=== PATIENT | male | born 1985 | race Caucasian/White ===

== ENCOUNTER 2019-05-17 13:47 | Inpatient (IN) ==
[2019-05-17 14:22] LABS: Basophils % 0.4 %; Eosinophils % 0.9 %; Hematocrit 44.1 % (37.5-50.1); Hemoglobin 15.4 g/dL (12.9-16.9); Immature Granulocytes % 0.2 % (0-4); Lymphocytes # 1.6 K/mcL (0.6-4.6); Lymphocytes % 35.3 %; Mean Corpuscular HGB Conc 34.9 g/dL (31.6-35.5); Mean Corpuscular Hemoglobin 30.4 pg (28.0-33.3); Mean Corpuscular Volume 87.2 fL (83.0-100.0); Mean Platelet Volume 8.8 fL (9.4-12.4); Monocytes # 0.7 K/mcL (0.0-1.3); Monocytes % 15.3 %; Neutrophils # 2.2 K/mcL (1.6-8.9); Platelet Count 258 K/mcL (140-400); Red Blood Count 5.06 M/mcL (4.19-5.50); Red Cell Distribution Width 12.5 % (11.5-14.5); Segmented Neutrophils % 47.9 %; White Blood Count 4.5 K/mcL (4.3-11.1)
[2019-05-17 14:47] LABS: Acetaminophen < 10 mcg/mL (10-20); Alanine Aminotransferase 22 Units/L (7-52); Albumin 4.3 g/dL (3.5-5.7); Albumin/Globulin Ratio 1.8 (1.1-2.2); Alkaline Phosphatase 76 Units/L (34-104); Aspartate Amino Transferase 20 Units/L (13-39); BUN/Creatinine Ratio 13 (6-26); Bilirubin,Indirect 0.3 mg/dL (0.0-1.0); Bilirubin,Total 0.3 mg/dL (0.3-1.0); Blood Urea Nitrogen 11 mg/dL (6-20); Calcium 9.4 mg/dL (8.6-10.3); Carbon Dioxide 26 mEq/L (23-29); Chloride 101 mEq/L (98-107); Chol/HDL Ratio 2.8 (0-4.9); Cholesterol 122 mg/dL (< 200); Ethanol < 10 mg/dL (Less than 10); Globulin 2.4 g/dL (2.4-3.5); Glucose 121 mg/dL (70-105); HDL Cholesterol 43 mg/dL (40-59); LDL Cholesterol,Calculated 59 mg/dL (0-99); Osmolality,Calculated 283 (280-300); Potassium 3.9 mEq/L (3.5-5.1); Salicylate < 2.5 mg/dL (15.0-30.0); Sodium 136 mEq/L (136-145); Total Protein 6.7 g/dL (6.4-8.9); Triglycerides 101 mg/dL (< 150); eGFR For African Americans > 60 (> 60); eGFR For Non-African Americans > 60 (> 60)
[2019-05-17 14:58] LABS: Thyroid Stimulating Hormone 0.846 mcIU/mL (0.340-5.600)
[2019-05-17 16:03] LABS: Estimated Average Glucose 123 mg/dl
[2019-05-17 16:04] LABS: Amphetamine Screen,Urine Negative ng/mL (Cutoff=1000); Barbiturate Screen,Urine Negative ng/mL (Cutoff=200); Benzodiazepines Screen,Urine Negative ng/mL (Cutoff=200); Cannabinoid Screen,Urine Negative ng/mL (Cutoff = 50); Cocaine Screen,Urine Negative ng/mL (Cutoff= 300); Opiate Screen,Urine Negative ng/mL (Cutoff=300); Phencyclidine Screen,Urine Negative ng/mL (Cutoff=25)
[2019-05-17 16:11] LABS: Bilirubin,Urine Negative (Negative); Blood,Urine Negative (Negative); Clarity,Urine Clear (Clear); Color,Urine Yellow (Yellow); Glucose,Urine (UA) Normal (Normal); Ketones,Urine Negative (Negative); Leukocyte Esterase,Urine Negative (Negative); Nitrite,Urine Negative (Negative); PH,Urine 6.5 pH Units (5.0-8.0); Protein,Urine Negative (Neg-Trace); Specific Gravity,Urine 1.008 (1.010-1.025); Urobilinogen,Urine Normal (Normal)
[2019-05-17] MEDS ORDERED: *HR* LORazepam 2 MG/ML VIAL IM ONE (18:47)
[2019-05-17] MEDS ORDERED: Haloperidol Lactate 5 MG/ML VIAL IM ONE (18:47)
[2019-05-17] MEDS ORDERED: Acetaminophen 325 MG TABLET PO PRN (20:18)
[2019-05-17] MEDS ORDERED: hydrOXYzine pamoate 25 MG CAPSULE PO PRN (20:18)
[2019-05-17] MEDS ORDERED: Mag Hydrox/Al Hydrox/Simeth 30 ML UDC PO PRN (20:18)
[2019-05-17] MEDS ORDERED: *HR* LORazepam 2 MG/ML VIAL IM PRN (20:18)
[2019-05-17] MEDS: OLANZapine 10 MG TAB.RAPDIS PO SCH ×2 (21:13→21:19)
[2019-05-17] MEDS: Nicotine 21 MG PATCH.TD24 TD SCH (21:22)
[2019-05-18] MEDS: Nicotine 21 MG PATCH.TD24 TD SCH (08:43)
[2019-05-18] MEDS: Fluticasone Propionate Nasal 50 MCG/SPRAY BOTTLE NS SCH (13:40)
[2019-05-18] MEDS: *HR* LORazepam 1 MG TABLET PO PRN (21:03)
[2019-05-18] MEDS: OLANZapine 10 MG TAB.RAPDIS PO SCH (21:04)
[2019-05-19] MEDS: Nicotine 21 MG PATCH.TD24 TD SCH (08:39)
[2019-05-19] MEDS: Fluticasone Propionate Nasal 50 MCG/SPRAY BOTTLE NS SCH (08:40)
[2019-05-19] MEDS: *HR* LORazepam 1 MG TABLET PO PRN ×2 (14:37→20:25)
[2019-05-19] MEDS: OLANZapine 10 MG TAB.RAPDIS PO SCH (20:28)
[2019-05-20] MEDS: Nicotine 21 MG PATCH.TD24 TD SCH (11:12)
[2019-05-20] MEDS: Fluticasone Propionate Nasal 50 MCG/SPRAY BOTTLE NS SCH (11:12)
[2019-05-20] MEDS: *HR* LORazepam 1 MG TABLET PO PRN (14:06)
[2019-05-20] MEDS: OLANZapine 10 MG TAB.RAPDIS PO SCH (21:47)
[2019-05-21] MEDS: Nicotine 21 MG PATCH.TD24 TD SCH ×2 (10:10→12:56)
[2019-05-21] MEDS: Fluticasone Propionate Nasal 50 MCG/SPRAY BOTTLE NS SCH ×2 (10:10→12:56)
[2019-05-21] MEDS: OLANZapine 10 MG TAB.RAPDIS PO SCH (21:41)
[2019-05-22] MEDS: Nicotine 21 MG PATCH.TD24 TD SCH (10:23)
[2019-05-22] MEDS: Fluticasone Propionate Nasal 50 MCG/SPRAY BOTTLE NS SCH ×2 (10:27→13:24)
[2019-05-22] MEDS: MOM Conc 10 ML UD.LIQ PO PRN (13:14)
[2019-05-22] MEDS: OLANZapine 10 MG TAB.RAPDIS PO SCH (22:02)
[2019-05-23] MEDS: Nicotine 2 MG GUM BC PRN ×4 (07:29→17:14)
[2019-05-23] MEDS: Fluticasone Propionate Nasal 50 MCG/SPRAY BOTTLE NS SCH ×2 (09:18→15:06)
[2019-05-24] MEDS: OLANZapine 10 MG TAB.RAPDIS PO SCH ×2 (02:28→23:20)
[2019-05-24] MEDS: Nicotine 2 MG GUM BC PRN ×3 (07:19→18:02)
[2019-05-24] MEDS: Fluticasone Propionate Nasal 50 MCG/SPRAY BOTTLE NS SCH ×2 (08:38→13:54)
[2019-05-25] MEDS: Nicotine 2 MG GUM BC PRN ×4 (07:46→17:22)
[2019-05-25] MEDS: Fluticasone Propionate Nasal 50 MCG/SPRAY BOTTLE NS SCH ×2 (09:01→17:22)
[2019-05-26] MEDS: Nicotine 2 MG GUM BC PRN ×5 (09:37→23:28)
[2019-05-26] MEDS: Fluticasone Propionate Nasal 50 MCG/SPRAY BOTTLE NS SCH ×2 (09:38→23:41)
[2019-05-27] MEDS: Nicotine 2 MG GUM BC PRN ×6 (07:34→23:30)
[2019-05-27] MEDS: Fluticasone Propionate Nasal 50 MCG/SPRAY BOTTLE NS SCH ×2 (09:39→18:52)
[2019-05-28] MEDS: Nicotine 2 MG GUM BC PRN ×5 (06:35→22:34)
[2019-05-28] MEDS: Fluticasone Propionate Nasal 50 MCG/SPRAY BOTTLE NS SCH ×2 (09:38→21:56)
[2019-05-28] MEDS: traZODone 50 MG TABLET PO PRN (21:46)
[2019-05-29] MEDS: Nicotine 2 MG GUM BC PRN ×3 (06:56→15:22)
[2019-05-29] MEDS: Fluticasone Propionate Nasal 50 MCG/SPRAY BOTTLE NS SCH ×2 (10:11→15:22)
[2019-05-29] MEDS: *HR* LORazepam 1 MG TABLET PO SCH ×2 (13:31→23:20)
[2019-05-29] MEDS: *HR* LORazepam 1 MG TABLET PO PRN (18:32)
[2019-05-29] MEDS ORDERED: Haloperidol Lactate 5 MG/ML VIAL IM ONE (19:55)
[2019-05-29] MEDS ORDERED: *HR* LORazepam 2 MG/ML VIAL IM ONE (19:55)
[2019-05-30] MEDS: Nicotine 2 MG GUM BC PRN ×2 (07:29→10:00)
[2019-05-30] MEDS: *HR* LORazepam 1 MG TABLET PO SCH ×2 (10:01→21:19)
[2019-05-30] MEDS: Fluticasone Propionate Nasal 50 MCG/SPRAY BOTTLE NS SCH (10:02)
[2019-05-30] MEDS: Nicotine 21 MG PATCH.TD24 TD SCH (12:48)
[2019-05-30] MEDS: *HR* LORazepam 1 MG TABLET PO PRN (17:45)
[2019-05-30] MEDS: traZODone 50 MG TABLET PO PRN (21:20)
[2019-05-31] MEDS: Fluticasone Propionate Nasal 50 MCG/SPRAY BOTTLE NS SCH (07:54)
[2019-05-31] MEDS: Nicotine 21 MG PATCH.TD24 TD SCH (07:54)
[2019-05-31] MEDS: *HR* LORazepam 1 MG TABLET PO SCH ×2 (07:55→21:01)
[2019-05-31] MEDS: *HR* LORazepam 1 MG TABLET PO PRN ×2 (12:20→18:44)
[2019-05-31] MEDS: Haloperidol Lactate 5 MG/ML VIAL IM PRN ×2 (14:00→19:33)
[2019-05-31] MEDS: traZODone 50 MG TABLET PO PRN (21:00)
[2019-06-01] MEDS: Nicotine 21 MG PATCH.TD24 TD SCH (08:22)
[2019-06-01] MEDS: *HR* LORazepam 1 MG TABLET PO SCH ×2 (08:23→21:17)
[2019-06-01] MEDS: Fluticasone Propionate Nasal 50 MCG/SPRAY BOTTLE NS SCH ×2 (08:23→11:43)
[2019-06-01] MEDS: *HR* LORazepam 1 MG TABLET PO PRN ×2 (12:28→18:31)
[2019-06-01] MEDS: traZODone 50 MG TABLET PO PRN (21:18)
[2019-06-02] MEDS: *HR* LORazepam 1 MG TABLET PO PRN ×2 (06:36→16:59)
[2019-06-02] MEDS: Fluticasone Propionate Nasal 50 MCG/SPRAY BOTTLE NS SCH (06:37)
[2019-06-02] MEDS: Nicotine 21 MG PATCH.TD24 TD SCH (08:41)
[2019-06-02] MEDS: *HR* LORazepam 1 MG TABLET PO SCH ×3 (10:22→21:11)
[2019-06-02] MEDS: MOM Conc 10 ML UD.LIQ PO PRN (17:37)
[2019-06-02] MEDS: traZODone 50 MG TABLET PO PRN (21:11)
[2019-06-03] MEDS: Fluticasone Propionate Nasal 50 MCG/SPRAY BOTTLE NS SCH (08:14)
[2019-06-03] MEDS: *HR* LORazepam 1 MG TABLET PO SCH ×3 (08:14→20:51)
[2019-06-03] MEDS: Nicotine 21 MG PATCH.TD24 TD SCH (08:15)
[2019-06-03] MEDS: *HR* LORazepam 1 MG TABLET PO PRN (13:09)
[2019-06-03] MEDS: Saline Nasal Spray 44 ML BOTTLE NS PRN (15:22)
[2019-06-03] MEDS: traZODone 50 MG TABLET PO PRN (20:51)
[2019-06-04] MEDS: Nicotine 21 MG PATCH.TD24 TD SCH (08:30)
[2019-06-04] MEDS: Fluticasone Propionate Nasal 50 MCG/SPRAY BOTTLE NS SCH (08:33)
[2019-06-04] MEDS: *HR* LORazepam 1 MG TABLET PO SCH (10:35)
[2019-06-04] MEDS: Saline Nasal Spray 44 ML BOTTLE NS PRN (14:48)
[2019-06-04] MEDS: *HR* LORazepam 1 MG TABLET PO PRN ×2 (16:07→21:33)
[2019-06-04] MEDS: traZODone 50 MG TABLET PO PRN (21:33)
[2019-06-05] MEDS: Nicotine 21 MG PATCH.TD24 TD SCH (08:47)
[2019-06-05] MEDS: *HR* LORazepam 1 MG TABLET PO PRN ×3 (10:40→20:48)
[2019-06-05] MEDS: Fluticasone Propionate Nasal 50 MCG/SPRAY BOTTLE NS SCH (10:40)
[2019-06-05] MEDS: Saline Nasal Spray 44 ML BOTTLE NS PRN (12:18)
[2019-06-05] MEDS: traZODone 50 MG TABLET PO PRN (20:48)
[2019-06-06] MEDS: Nicotine 21 MG PATCH.TD24 TD SCH (09:07)
[2019-06-06] MEDS: Fluticasone Propionate Nasal 50 MCG/SPRAY BOTTLE NS SCH (09:08)
[2019-06-06] MEDS: *HR* LORazepam 1 MG TABLET PO PRN ×2 (11:43→16:07)
[2019-06-06] MEDS: MOM Conc 10 ML UD.LIQ PO PRN (11:44)
[2019-06-06] MEDS: Saline Nasal Spray 44 ML BOTTLE NS PRN (13:29)
[2019-06-07] MEDS: *HR* LORazepam 1 MG TABLET PO PRN ×4 (04:50→21:55)
[2019-06-07] MEDS: Nicotine 21 MG PATCH.TD24 TD SCH (11:24)
[2019-06-07] MEDS: Fluticasone Propionate Nasal 50 MCG/SPRAY BOTTLE NS SCH ×2 (12:45→13:57)
[2019-06-07] MEDS: MOM Conc 10 ML UD.LIQ PO PRN (13:15)
[2019-06-07] MEDS: Saline Nasal Spray 44 ML BOTTLE NS PRN (16:27)
[2019-06-07] MEDS: traZODone 50 MG TABLET PO PRN (21:55)
[2019-06-08] MEDS: Nicotine 21 MG PATCH.TD24 TD SCH (08:01)
[2019-06-08] MEDS: *HR* LORazepam 1 MG TABLET PO PRN ×3 (08:28→18:08)
[2019-06-08] MEDS: Fluticasone Propionate Nasal 50 MCG/SPRAY BOTTLE NS SCH (08:28)
[2019-06-08] MEDS: Saline Nasal Spray 44 ML BOTTLE NS PRN (13:02)
[2019-06-09] MEDS: Nicotine 21 MG PATCH.TD24 TD SCH (08:00)
[2019-06-09] MEDS: *HR* LORazepam 1 MG TABLET PO PRN ×3 (08:00→18:08)
[2019-06-09] MEDS: Fluticasone Propionate Nasal 50 MCG/SPRAY BOTTLE NS SCH (08:01)
[2019-06-09] MEDS: Saline Nasal Spray 44 ML BOTTLE NS PRN (18:09)
[2019-06-10] MEDS: Fluticasone Propionate Nasal 50 MCG/SPRAY BOTTLE NS SCH (08:33)
[2019-06-10] MEDS: Nicotine 21 MG PATCH.TD24 TD SCH (08:33)
[2019-06-10] MEDS: *HR* LORazepam 1 MG TABLET PO PRN ×2 (08:35→17:43)
[2019-06-10] MEDS: Saline Nasal Spray 44 ML BOTTLE NS PRN (12:48)
[2019-06-11] MEDS: Nicotine 21 MG PATCH.TD24 TD SCH (08:34)
[2019-06-11] MEDS: *HR* LORazepam 1 MG TABLET PO PRN ×2 (10:39→17:14)
[2019-06-11] MEDS: MOM Conc 10 ML UD.LIQ PO PRN (11:02)
[2019-06-11] MEDS: Saline Nasal Spray 44 ML BOTTLE NS PRN (11:04)
[2019-06-11] MEDS: Fluticasone Propionate Nasal 50 MCG/SPRAY BOTTLE NS SCH (14:27)
[2019-06-12] MEDS: Nicotine 21 MG PATCH.TD24 TD SCH (08:35)
[2019-06-12] MEDS: Fluticasone Propionate Nasal 50 MCG/SPRAY BOTTLE NS SCH ×2 (14:10→19:17)
[2019-06-12] MEDS: *HR* LORazepam 1 MG TABLET PO PRN (17:38)
[2019-06-12] MEDS: traZODone 50 MG TABLET PO PRN (20:33)
[2019-06-12] MEDS: Saline Nasal Spray 44 ML BOTTLE NS PRN (21:15)
[2019-06-12] MEDS: Ibuprofen 400 MG TABLET PO PRN (21:15)
[2019-06-13] MEDS: Nicotine 21 MG PATCH.TD24 TD SCH (08:28)
[2019-06-13] MEDS: Fluticasone Propionate Nasal 50 MCG/SPRAY BOTTLE NS SCH ×2 (08:29→12:15)
[2019-06-13] MEDS: *HR* LORazepam 1 MG TABLET PO PRN ×2 (11:26→18:07)
[2019-06-13] MEDS: Ibuprofen 400 MG TABLET PO PRN (12:15)
[2019-06-13] MEDS: MOM Conc 10 ML UD.LIQ PO PRN (15:41)
[2019-06-13] MEDS: Saline Nasal Spray 44 ML BOTTLE NS PRN (18:18)
[2019-06-14] MEDS: Nicotine 21 MG PATCH.TD24 TD SCH (08:44)
[2019-06-14] MEDS: Fluticasone Propionate Nasal 50 MCG/SPRAY BOTTLE NS SCH ×2 (08:44→19:00)
[2019-06-14] MEDS ORDERED: *HR* LORazepam 1 MG TABLET PO PRN (11:07)
[2019-06-14] MEDS: MOM Conc 10 ML UD.LIQ PO PRN (17:34)
[2019-06-15] MEDS: Nicotine 21 MG PATCH.TD24 TD SCH (08:53)
[2019-06-15] MEDS: Fluticasone Propionate Nasal 50 MCG/SPRAY BOTTLE NS SCH (08:54)
[2019-06-15] MEDS: Saline Nasal Spray 44 ML BOTTLE NS PRN (08:55)
[2019-06-15] MEDS: *HR* LORazepam 1 MG TABLET PO PRN (20:00)
[2019-06-15] MEDS: traZODone 50 MG TABLET PO PRN (21:05)
[2019-06-16] MEDS: Nicotine 21 MG PATCH.TD24 TD SCH (08:25)
[2019-06-16] MEDS: Fluticasone Propionate Nasal 50 MCG/SPRAY BOTTLE NS SCH (08:35)
[2019-06-16] MEDS: *HR* LORazepam 1 MG TABLET PO PRN (14:45)
[2019-06-16] MEDS: Ibuprofen 400 MG TABLET PO PRN (15:49)
[2019-06-16] MEDS: traZODone 50 MG TABLET PO PRN (20:46)
[2019-06-16] MEDS: Saline Nasal Spray 44 ML BOTTLE NS PRN (21:01)
[2019-06-17] MEDS: Nicotine 21 MG PATCH.TD24 TD SCH (08:21)
[2019-06-17] MEDS: Fluticasone Propionate Nasal 50 MCG/SPRAY BOTTLE NS SCH ×2 (08:23→09:17)
[2019-06-17] MEDS: *HR* LORazepam 1 MG TABLET PO PRN ×2 (09:29→21:30)
[2019-06-17] MEDS: Ibuprofen 400 MG TABLET PO PRN (18:13)
[2019-06-17] MEDS: traZODone 50 MG TABLET PO PRN (21:28)
[2019-06-18] MEDS: Nicotine 21 MG PATCH.TD24 TD SCH (08:08)
[2019-06-18] MEDS: Fluticasone Propionate Nasal 50 MCG/SPRAY BOTTLE NS SCH ×2 (08:09→09:03)
[2019-06-18] MEDS: *HR* LORazepam 1 MG TABLET PO PRN ×2 (09:05→21:06)
[2019-06-18] MEDS: Ibuprofen 400 MG TABLET PO PRN (14:14)
[2019-06-18] MEDS: Saline Nasal Spray 44 ML BOTTLE NS PRN (17:52)
[2019-06-18] MEDS: traZODone 50 MG TABLET PO PRN (21:06)
[2019-06-19] MEDS: Nicotine 21 MG PATCH.TD24 TD SCH (08:34)
[2019-06-19] MEDS: Fluticasone Propionate Nasal 50 MCG/SPRAY BOTTLE NS SCH (09:55)
[2019-06-19] MEDS: *HR* LORazepam 1 MG TABLET PO PRN (11:38)
[2019-06-19] MEDS: traZODone 50 MG TABLET PO PRN (20:42)
[2019-06-20] MEDS: *HR* LORazepam 1 MG TABLET PO PRN (03:07)
[2019-06-20] MEDS: Nicotine 21 MG PATCH.TD24 TD SCH (08:20)
[2019-06-20 08:28] VITALS: BP 139/80
[2019-06-20] MEDS: Fluticasone Propionate Nasal 50 MCG/SPRAY BOTTLE NS SCH (09:01)
== END 2019-06-20 13:35 | disposition home or self-care (01) | DRG 885 ==
LOC: 1ANU 13:47 → EMEROOARM 13:47 → 1ANU 20:50 → SUATTDRO 23:26
PROVIDERS: ADMIT Psychiatry & Neurology Psychiatry; ATTEND Psychiatry & Neurology Psychiatry